=== PATIENT | female | born 1990 | race Caucasian/White ===

== ENCOUNTER 2019-10-19 18:11 | Emergency (ER) | payer MEDICAID ==
[~2019-10-19] VITALS: Ht 152.4 cm; Wt 55.8 kg
[2019-10-19 18:35] VITALS: Ht 152.4 cm; Wt 55.8 kg
[2019-10-19 20:23] VITALS: BP 107/43
== END 2019-10-19 20:23 | disposition home or self-care (01) ==
LOC: ED 18:11
DX: J02.0 Streptococcal pharyngitis (principal); Z88.6 Allergy status to analgesic agent
CPT/HCPCS: J2920